=== PATIENT | male | born 1970 | race Caucasian/White ===

== ENCOUNTER 2016-04-15 10:29 | Emergency (ER) | payer BC ==
[2016-04-15 10:35] VITALS: BP 153/93
--- NOTE | 2016-04-15 10:59 | ED ---
Upper Extremity Pain - History of Current Complaint Chief Complaint: EDExtremityUpper Stated Complaint: FALL HAND INJURY Hx Obtained From: Patient Mechanism Of Injury: Fall From A Standing Position - slipped on slippery floor last pm and injured R thumb Onset/Duration: Started Hours Ago - 11h Timing: Constant Severity Initially: Moderate Severity Currently: Moderate Pain Location: Finger - R thumb Character: Throbbing Aggravating Factor(s): Movement Alleviating Factor(s): Rest, Elevation, OTC Meds - Tylenol "helped a little" Associated Signs & Symptoms: Positive: Swelling, Bruising - small abrasion base thumb Related History: Dominant Hand Right - Allergies/Home Medications Allergies/Adverse Reactions: Allergies Allergy/AdvReac Type Severity Reaction Status Date / Time No Known Allergies Allergy Verified 04/15/16 10:34 PMH/Surg Hx/FS Hx/Imm Hx Previously Healthy: Yes Endocrine/Hematology History: Denies: Other Endocrine/Hematological Disorders Cardiovascular History: Denies: Other Cardiovascular Problems/Disorders Respiratory History: Denies: Other Respiratory Problems/Disorders GI History: Denies: Other GI Disorders Musculoskeletal History: Denies: Other Musculoskeletal History Psychiatric History: Denies: Other Psychiatric Issues/Disorders Infectious Disease History: No Infectious Disease History: Denies: Traveled Outside the [place] in Last 30 Days Review of Systems Constitutional: Negative Cardiovascular: Negative Respiratory: Negative Positive: Decreased ROM - R thumb Skin: Negative Psychological: Normal All Other Systems Reviewed And Are Negative: Yes Physical Exam Triage Information Reviewed: Yes Vital Signs On Initial Exam: Initial Vitals Temp Pulse Resp BP Pulse Ox 97.3 F 88 15 153/93 100 04/15/16 10:30 04/15/16 10:30 04/15/16 10:30 04/15/16 10:30 04/15/16 10:30 Vital Signs Reviewed: Yes Appearance: Positive: Well-Appearing, No Pain Distress, Well-Nourished Skin: Positive: Warm, Skin Color Reflects Adequate Perfusion, Dry Respiratory/Lung Sounds: Positive: Clear to Auscultation Cardiovascular: Positive: Normal, RRR, Pulses are Symmetrical in both Upper and Lower Extremities Musculoskeletal: Positive: Other - R thumb deformity, swelling/ecchymosis. + cap refill distal finger Neurological: Positive: Normal, Sensory/Motor Intact, Alert, Oriented to Person Place, Time Psychiatric: Positive: Normal Diagnostics - Vital Signs Vital Signs Temp Pulse Resp BP Pulse Ox 01/08/17 10:30 97.3 F 88 15 153/93 100 - Laboratory Lab Statement: Any lab studies that have been ordered have been reviewed, and results considered in the medical decision making process. Re-Evaluation - Re-Evaluation First Eval Re-Evaluation Time: 13:05 Change: Improved - deies pain at this time Second Eval Re-Evaluation Time: 01:45 - cap refill < 2secs distal R thumb after splint placed Change: Unchanged Course/Dx - Course Course Of Treatment: Dr. Finch consulted for reduction - Diagnoses Differential Diagnosis/HQI/PQRI: Positive: Fracture (Closed), Strain, Sprain, Other - dislocation Provider Diagnoses: Dislocated thumb Discharge - Discharge Plan Condition: Improved Disposition: HOME Forms: *Work Release Referrals: Matthew Gallagher DO [Primary Care Provider] - Delmis Mendiola MD [Medical Doctor] - 2 Days (call tomorrow for follow-up) Additional Instructions: Ice and elevate hand wear splint until cleared by orthopedics use ibuprofen for pain for severe pain use hydrocodone
[2016-04-15] MEDS ORDERED: Tetan/Diph/Pertus SYR(Tdap)* 0.5 ML SYR(BOOSTRIX) use SYR IM ONE (11:01)
--- NOTE | 2016-04-15 11:35 | RAD ---
HISTORY: Right thumb pain after fall COMPARISONS: None VIEWS: 3, Frontal, lateral, and oblique views of the first digit of the right hand FINDINGS: BONE DENSITY: Normal. BONES: There is no displaced fracture. JOINTS: There is no arthropathy. ALIGNMENT: There is dorsal dislocation of the proximal phalanx with respect to the first metacarpal SOFT TISSUES: Unremarkable. OTHER FINDINGS: None. IMPRESSION: FIRST MCP DISLOCATION
[2016-04-15] MEDS ORDERED: HYDROcodone/ACETAMIN 5-325 MG* 1 TAB PO ONE (11:49)
--- NOTE | 2016-04-15 13:36 | RAD ---
HISTORY: Post reduction COMPARISONS: April 15, 2016 at 11:11 AM VIEWS: 3, Frontal, lateral, and oblique views of the first digit of the right hand at 1:18 PM FINDINGS: BONE DENSITY: Normal. BONES: There is no displaced fracture. JOINTS: There is no arthropathy. ALIGNMENT: There has been interval reduction of the first MCP dislocation SOFT TISSUES: Unremarkable. OTHER FINDINGS: None. IMPRESSION: INTERVAL REDUCTION OF THE FIRST MCP DISLOCATION
--- NOTE | 2016-04-15 13:51 | ED ---
Marjan Guzman Matthew, scribed for Jacques Finch MD on 04/15/16 at 1344 . Re-Evaluation - Re-Evaluation First Eval Re-Evaluation Time: 13:05 Change: Improved - deies pain at this time Second Eval Re-Evaluation Time: 01:45 - cap refill < 2secs distal R thumb after splint placed Change: Unchanged Course/Dx - Diagnoses Provider Diagnoses: Dislocation of right thumb Procedures - Procedure Summary Procedure Summary: Dislocated right thumb 1st metacarpophalangeal joint. Attempted reduction without local anesthesia; however was unsuccessful, because the patient did not want to be anesthetized. A digital block was preformed going from both the dorsal and volar surfaces using lidocaine 2% 8cc and a digital block. Applying traction to his thumb, I was able to reduce his thumb. Confirmed by XR. - Joint Reduction Joint Reduction Site: other - right thumb 1st metacarpophalangeal joint Specify Other Joint Reduced: right thumb 1st metacarpophalangeal joint Conscious Sedation: No Reduction Attempts: 2 Post Joint Reduction Film: joint reduced The documentation as recorded by the Marjan trujillo Matthew accurately reflects the service I personally performed and the decisions made by me, Jacques Finch MD.
== END 2016-04-15 14:03 | disposition home or self-care (01) ==
LOC: ED 10:29
DX: S63.114A Dislocation of metacarpophalangeal joint of right thumb, initial encounter (principal); W01.0XXA Fall on same level from slipping, tripping and stumbling without subsequent striking against object, initial encounter; Y92.9 Unspecified place or not applicable
CPT/HCPCS: 26700; 90715; 99282